=== PATIENT | male | born 1970 | race Hispanic/Latino ===

== ENCOUNTER 2024-04-01 17:48 | Emergency (ER) | payer OTHER ==
[~2024-04-01] VITALS: Ht 170.2 cm; Wt 90.7 kg
[2024-04-01 18:07] VITALS: BP 156/98; PULSE 82; RESP 18; TEMP 98.4; O2SAT 95
[2024-04-01] MEDS ORDERED: TETRACAINE HCL ONE (18:16)
[2024-04-01] MEDS ORDERED: FUL-GLO OP ONE (18:16)
[2024-04-01] MEDS ORDERED: ERYTHROMYCIN ONE (18:55)
[2024-04-01 18:57] VITALS: BP 145/81; PULSE 80; RESP 18; O2SAT 97
[2024-04-01] MEDS: ERYTHROMYCIN BOTH EYES ONE (18:57)
== END 2024-04-01 19:05 | disposition home or self-care (01) ==
LOC: ER 17:48
DX: S05.02XA Injury of conjunctiva and corneal abrasion without foreign body, left eye, initial encounter (principal); W44.9XXA Unspecified foreign body entering into or through a natural orifice, initial encounter; Y93.89 Activity, other specified; Y92.89 Other specified places as the place of occurrence of the external cause; Y99.0 Civilian activity done for income or pay
CPT/HCPCS: 99283